=== PATIENT | male | born 1985 | race Two or more races ===

== ENCOUNTER 2021-08-21 06:01 | Day surgery (SDC) | payer OTHER ==
[~2021-08-21] VITALS: Ht 177.8 cm; Wt 72.6 kg
[2021-08-21] MEDS ORDERED: fentaNYL CITRATE 100 MCG/2 ML VL IV ONE (06:02)
[2021-08-21] MEDS ORDERED: NALOXONE HCL 0.4 MG/ML VIAL IV ONE (06:02)
[2021-08-21] MEDS ORDERED: LIDOCAINE 1%-Mpf/Epinephrine 1:200,000 ONE (07:09)
[2021-08-21] MEDS ORDERED: ceFAZolin 1GM/50ML 100 ML IV ONE (07:56)
[2021-08-21] MEDS ORDERED: fentaNYL CITRATE 100 MCG/2 ML VL ONE (09:18)
[2021-08-21] MEDS ORDERED: GLYCOPYRROLATE 0.2 MG/ML 1ML VIAL ONE (09:46)
[2021-08-21] MEDS ORDERED: ONDANSETRON HCL 4 MG/2 ML VIAL ONE (10:12)
[2021-08-21] MEDS ORDERED: PROPOFOL 10 MG/ML 20 ML IV ONE ×2 (10:13→10:20)
[2021-08-21] MEDS ORDERED: NALOXONE HCL 0.4 MG/ML VIAL ONE (10:28)
[2021-08-21 11:15] VITALS: BP 130/84
== END 2021-08-21 11:25 | disposition home or self-care (01) ==
LOC: SUR 06:01
PROVIDERS: ATTEND Urology
DX: I86.1 Scrotal varices (principal); J45.909 Unspecified asthma, uncomplicated; F43.10 Post-traumatic stress disorder, unspecified; F31.9 Bipolar disorder, unspecified; Z98.890 Other specified postprocedural states; Z79.899 Other long term (current) drug therapy; Z20.822 Contact with and (suspected) exposure to COVID-19
CPT/HCPCS: 55530; 88305; J0690; J2001; J2310; J2405; J2704; J3010

== ENCOUNTER → 2022-06-17 | Outpatient (CLI) | payer OTHER | END | disposition home or self-care (01) | LOC: CT 08:48 | DX: K21.9 Gastro-esophageal reflux disease without esophagitis (principal); J34.2 Deviated nasal septum; R04.0 Epistaxis | CPT/HCPCS: 70486 ==